=== PATIENT | female | born 1955 | race Caucasian/White ===

== ENCOUNTER → 2017-04-07 | Outpatient (CLI) | payer OTHER ==
[~2017-04-07] MED LIST: ERYTHROMYCIN O3.5 GM OD
[2017-04-07 12:30] LABS: CREATININE SERUM 0.7 mg/dL (0.6-1.4); GLOM FILT RATE Estimated 93.5 mL/min (>60)
== END | disposition home or self-care (01) ==
LOC: CLAB 11:28
PROVIDERS: Surgery Vascular Surgery
DX: I25.10 Atherosclerotic heart disease of native coronary artery without angina pectoris (principal); I65.23 Occlusion and stenosis of bilateral carotid arteries; N18.6 End stage renal disease
CPT/HCPCS: 36415; 82565

== ENCOUNTER → 2017-04-10 | Outpatient (CLI) | payer OTHER ==
--- NOTE | ~2017-04-10 | CT17 ---
[facility] A Service of [facility] & [facility] RADIOLOGY TEXT RESULTS PATIENT: DAVID SALAZAR LOCATION: [facility] : 55 UNIT #: [id number] AGE: [address]: Damon Yepez MD SEX: F ORDER DR: [id number] [facility] [address] [place], [place] [address] [id number] O MR#: [id number] Acc #: [id number] NAME: DAVID SALAZAR : 1955 SEX: F STUDY DATE/TIME: 04/10/2017 9:51 UNIT: [facility] ROOM: STUDY DESCRIPTION: CT Angio Head Attending Physician: Damon Yepez M.D. Referring Physician: Damon Yepez M.D. Ordering Physician: Damon Yepez M.D. Primary Care Physician: Darci David M.D. MEDICAL IMAGING REPORT This report is preliminary unless electronic signature is present EXAM CT scan head neck with contrast with carotid CT angiography HISTORY Bilateral carotid stenosis. Abnormal carotid Doppler ultrasound examination in January. The patient is asymptomatic. TECHNIQUE Thin section imaging was obtained from the mid mediastinum to the top of head with contrast. 100 mL of Isovue was used. CT angiography was performed with thick sliding MIPs, curved planar reformats and 3-D volumetric imaging with surface-shaded and volume-shaded display. This CT exam was performed with one or more of the following radiation dose reduction techniques: automatic exposure control, adjustment of mA and/or kV according to patient size, and iterative reconstruction. FINDINGS Extravascular structures are unremarkable. The CT angiographic study shows mild calcified plaque in the great vessel origins. Soft plaque at the origin of the left common carotid artery narrows the lumen approximate 50%. In the posterior circulation, both vertebral arteries are large and widely patent and the distal vertebrals are codominant. The basilar artery is widely patent. In the carotid circulation, there is mixed calcified and soft plaque in both common carotid arteries. Maximum common carotid stenosis on each side is approximately 25%. Plaque extends across both carotid bifurcations. Maximum stenosis by NASCET criteria on the right is 60%. [facility] A Service of [facility] & [facility] RADIOLOGY TEXT RESULTS PATIENT: DAVID SALAZAR LOCATION: [facility] : 55 UNIT #: [id number] AGE: [address]: Damon Yepez MD SEX: F ORDER DR: On the left side maximum stenosis by NASCET criteria is 35%. The distal carotids up through the siphons are widely patent. In the intracranial circulation there is no evidence of aneurysm, vascular malformation or major branch vessel occlusion. No severe intracranial stenosis is seen. IMPRESSION Diffuse atherosclerotic disease as described above. At the right proximal internal carotid artery there is a stenosis of 60% by NASCET criteria. On the left side the degree of stenosis is 35% by NASCET criteria. No branch vessel occlusive disease is seen intracranially and no critical intracranial stenoses are noted. The left common carotid artery is noted to be about 50% narrowed at its origin off of the arch. Dictated by... Christo Bunn M.D. THIS IS AN ELECTRONICALLY VERIFIED REPORT Chritso Bunn M.D. at 04/16/2017 7:10 AM ANAMARIA/michael TD: 04/10/2017 23:00 JOB #: [id number] MEDICAL IMAGING REPORT Page 1 of 1 COPY
== END | disposition home or self-care (01) ==
LOC: CCAT 08:57
DX: I65.23 Occlusion and stenosis of bilateral carotid arteries (principal)
CPT/HCPCS: 70496; 70498; Q9967

== ENCOUNTER → 2017-07-02 | Outpatient (CLI) | payer OTHER ==
--- NOTE | ~2017-07-02 | CR206 ---
[facility] A Service of [facility] & [facility] RADIOLOGY TEXT RESULTS PATIENT: DAVID SALAZAR LOCATION: [facility] : 55 UNIT #: [id number] AGE: [address]: Donna So MD SEX: F ORDER DR: [id number] [facility] [address] [place], [place] [address] [id number] O MR#: [id number] Acc #: [id number] NAME: DAVID SALAZAR : 1955 SEX: F STUDY DATE/TIME: 07/03/2017 UNIT: [facility] ROOM: STUDY DESCRIPTION: CR Pelvis 1 or 2 Views Attending Physician: Donna So M.D. Referring Physician: Donna So M.D. Ordering Physician: Donna So M.D. Primary Care Physician: Darci David M.D. MEDICAL IMAGING REPORT This report is preliminary unless electronic signature is present EXAM Pelvis 1-view 07/02/2017, 1803 hours HISTORY Patient complains of a pelvic and hip pain for 1 year. No recent injury. COMPARISON 12/06/2013. FINDINGS Single AP view of the pelvis demonstrates superolateral joint space loss hqjb-fesguxj-evir-right hip with spurring at both hips, left worse than right, slight progression from 12/06/2013. Sacrum and sacroiliac joints appear normal. There is spurring and irregularity at the pubic symphysis which is stable. IMPRESSION There is slight progression of joint space loss and spurring at the qrun-asbobpw-ygwf-right hip as compared to 12/06/2013. No fracture seen. Dictated by... Corrina Gonzalez M.D. THIS IS AN ELECTRONICALLY VERIFIED REPORT Corrina Gonzalez M.D. at 07/03/2017 5:52 PM MOISES/viet TD: 07/03/2017 17:06 JOB #: [id number] MEDICAL IMAGING REPORT Page 1 of 1 COPY
== END | disposition home or self-care (01) ==
LOC: CRAD 17:42
DX: M16.10 Unilateral primary osteoarthritis, unspecified hip (principal); M76.9 Unspecified enthesopathy, lower limb, excluding foot
CPT/HCPCS: 72170